=== PATIENT | male | born 1950 | race Caucasian/White ===

== ENCOUNTER 2017-11-19 07:31 | Outpatient (CLI) | payer MEDICARE, OTHER ==
--- NOTE | 2017-11-20 13:52 | MRI Report ---
EXAM: MRI CERVICAL SPINE WITHOUT CONTRAST COMPARISON: None. CLINICAL HISTORY: Cervicalgia. TECHNIQUE: Multiplanar, multisequence imaging through the cervical spine without intravenous contrast. FINDINGS: Evaluation of alignment shows no listhesis. C0-C1, C1-C2, and dens basion alignment are normal. Visualized posterior fossa shows no evident abnormality. No cord signal abnormality. Dorsal soft tissues are relatively unremarkable. No pathologic marrow replacement. No cervical adenopathy or masses are appreciated. Disk levels: C2-C3. Moderate disk height loss. There is mild right and moderate to severe left foraminal stenosis. No significant canal stenosis. C3-C4. Moderate disk height loss. There is moderate bilateral foraminal stenosis, mild bilateral fac et arthropathy. No significant canal stenosis. C4-C5. Moderate disk loss. Mild bilateral facet arthropathy. Asymmetric left-sided disk protrusion (8 01, 16), does narrow the left neural infundibulum. Foraminal stenosis is mild to moderate bilaterally . Mild to moderate asymmetric left-sided canal stenosis. C5-C6. Moderate disk height loss. Mild bilateral facet arthropathy. Asymmetric left-sided uncovertebr al joint hypertrophy/disk and osteophyte causes moderate to severe left foraminal stenosis. Mild righ t foraminal stenosis. Mild canal stenosis. C6-C7. Moderate disk height loss. Mild facet arthropathy. As at the level above, there is asymmetric left-sided disk and osteophyte. Foraminal stenosis is mild on the right, mild to moderate on the left . C7-T1. No significant canal or foraminal stenosis. IMPRESSION: No cord signal abnormality. No high-grade canal stenosis. C2-C3. Moderate to severe left foraminal stenosis. C5-C6. Moderate to severe left foraminal stenosis. Referring Provider Line: [phone] SITE ID: [id number]
== END 2017-11-19 07:32 | disposition home or self-care (01) ==
LOC: DI 07:31
PROVIDERS: ATTEND Otolaryngology Facial Plastic Surgery
DX: M48.02 Spinal stenosis, cervical region (principal)
CPT/HCPCS: 72141

== ENCOUNTER 2017-12-16 07:30 | Outpatient (CLI) | payer MEDICARE, OTHER ==
[2017-12-16] MEDS ORDERED: IOPAMIDOL-300 100 ML VIAL ONE (07:52)
[2017-12-16] MEDS ORDERED: IOPAMIDOL-300 50 ML VIAL ONE (07:52)
[2017-12-16 07:56] LABS: CREATININE 1.1 mg/dL (0.6-1.2)
[2017-12-16] MEDS ORDERED: IOPAMIDOL-300 100 ML VIAL IVP ONE (10:45)
--- NOTE | 2017-12-16 17:33 | CT Report ---
Procedure Date: 12/16/2017 Accession Number: [id number] / [id number] Procedure: CT - Abdomen/Pelvis W/ CPT Code: FULL RESULT: EXAM: CT ABDOMEN AND PELVIS EXAM DATE: 12/16/2017 09:11 AM. CLINICAL HISTORY: UNSPECIFIED ABDOMINAL PAIN. Colon cancer history. COMPARISONS: None available. TECHNIQUE: Routine helical CT imaging was performed through the abdomen and pelvis. IV contrast: 100 mL Isovue-300. Enteric contrast: Yes. Reconstructions: Coronal and sagittal. In accordance with CT protocol optimization, one or more of the following dose reduction techniques were utilized for this exam: automated exposure control, adjustment of mA and/or KV based on patient size, or use of iterative reconstructive technique. FINDINGS: Lung Bases: 1. There is a 0.5 cm nodule in the left lower lobe series 3 image 2. 2. There is a 0.2 cm nodule in the right lower lobe series 3 image 5. Liver: Normal. No masses. Gallbladder/Bile Ducts: There is a 0.4 cm gallstone. No gallbladder wall thickening or pericholecystic fluid is evident. No abnormal bile duct dilation. Spleen: Normal. Pancreas: Normal. Adrenal Glands: Normal. Kidneys: Normal. No masses or hydronephrosis. Peritoneal Cavity/Bowel: There are postsurgical changes to the rectosigmoid colon. There is some soft tissue thickening between the rectum and urinary bladder on series 3 image 68 measuring approximately 2.1 x 5.7 cm. No free fluid, free air or adenopathy. No masses or acute inflammatory process. The appendix is well visualized and normal. Pelvic Organs: Normal. The bladder and visualized pelvic organs are within normal limits. Vasculature: There is atherosclerotic plaque in the aorta and iliac arteries without aneurysm. Bones: There is degenerative spondylosis in the upper and mid lumbar spine. There is a left hip prosthesis. There are degenerative changes in the right hip. There is a 0.7 cm sclerotic lesion on the left side of L3 series 3 image 32. Other: There are small bilateral inguinal hernias containing soft tissue and fluid density. No pathologic adenopathy appreciated. IMPRESSION: 1. There are tiny bilateral lung nodules. 2. There are postsurgical changes to the rectosigmoid colon. There is an area of soft tissue thickening between the rectum and urinary bladder. Recurrent disease is a possibility, if the patient has prior imaging, this would be helpful to evaluate stability of this finding. 3. There is a subcentimeter sclerotic lesion on the left side of L3. This may represent a benign bone island, metastasis is another possibility. 4. Cholecystolithiasis and other incidental findings described above. RADIA
== END 2017-12-16 07:31 | disposition home or self-care (01) ==
LOC: LAB 07:30 → DI 07:31
PROVIDERS: ATTEND Surgery
DX: R91.8 Other nonspecific abnormal finding of lung field (principal); R10.9 Unspecified abdominal pain; M89.9 Disorder of bone, unspecified; Z85.038 Personal history of other malignant neoplasm of large intestine; K80.20 Calculus of gallbladder without cholecystitis without obstruction
CPT/HCPCS: 36415; 74177; 82565; Q9967

== ENCOUNTER 2017-12-26 08:10 | Outpatient (CLI) | payer MEDICARE, OTHER | END 2017-12-26 08:11 | disposition home or self-care (01) | LOC: DI 08:10 | PROVIDERS: ATTEND Surgery | DX: Z53.9 Procedure and treatment not carried out, unspecified reason (principal) ==

== ENCOUNTER 2017-12-27 08:05 | Outpatient (CLI) | payer MEDICARE, OTHER ==
--- NOTE | 2017-12-27 08:54 | XRAY Report ---
Procedure Date: 12/27/2017 Accession Number: [id number] / [id number] Procedure: XR - Abdomen 1 View X-Ray CPT Code: 56791 FULL RESULT: EXAM: Abdomen 1 View X-Ray DATE: 12/27/2017 8:20 AM CLINICAL HISTORY: SITZ MARKER TEST, CONSTIPATION, day one film COMPARISON: CT 12/16/2017 TECHNIQUE: 1 view. FINDINGS: Bowel Gas Pattern: Within normal limits. No dilated loops. Other: 3 markers are present in the ascending colon. 2 markers are noted in the transverse colon. 14 markers are noted in the splenic flexure/descending colon. Surgical clips are noted in the right lower quadrant, with a sigmoid anastomosis line present as well. IMPRESSION: 19 markers present in the colon on day one film. RADIA
== END 2017-12-27 08:06 | disposition home or self-care (01) ==
LOC: DI 08:05
PROVIDERS: ATTEND Surgery
DX: K59.00 Constipation, unspecified (principal)
CPT/HCPCS: 74018

== ENCOUNTER 2017-12-29 07:59 | Outpatient (CLI) | payer MEDICARE, OTHER ==
--- NOTE | 2017-12-29 09:02 | XRAY Report ---
Procedure Date: 12/29/2017 Accession Number: [id number] / [id number] Procedure: XR - Abdomen 1 View X-Ray CPT Code: 69040 FULL RESULT: EXAM: Abdomen 1 View X-Ray DATE: 12/29/2017 8:14 AM CLINICAL HISTORY: SITZ MARKER TEST, CONSTIPATION, day 3 COMPARISON: 12/27/2017 TECHNIQUE: 1 view. FINDINGS: Bowel Gas Pattern: Within normal limits. No dilated loops. Other: 3 markers are noted in the transverse colon, with 15 in the descending colon. Surgical clips and anastomosis in the pelvis appear unchanged. IMPRESSION: 18 remaining markers on day 3, in the transverse and descending colon. RADIA
== END 2017-12-29 08:00 | disposition home or self-care (01) ==
LOC: DI 07:59
PROVIDERS: ATTEND Surgery
DX: K59.00 Constipation, unspecified (principal)
CPT/HCPCS: 74018

== ENCOUNTER 2017-12-31 07:55 | Outpatient (CLI) | payer MEDICARE, OTHER ==
--- NOTE | 2017-12-31 13:12 | XRAY Report ---
Procedure Date: 12/31/2017 Accession Number: [id number] / [id number] Procedure: XR - Abdomen 1 View X-Ray CPT Code: 67986 FULL RESULT: EXAM: ABDOMEN RADIOGRAPHY EXAM DATE: 12/31/2017 08:07 AM. CLINICAL HISTORY: SITZ HOU TESTS,CONSTIPATION. COMPARISON: 12/29/2017. TECHNIQUE: 1 view. FINDINGS: Bowel Gas Pattern: 6 markers overlie the splenic flexure of the colon. 2 markers overlie the descending colon. Other: None. IMPRESSION: 1. There are 8 markers in the left colon. Interval decrease in number of Sitzmarks markers compared to 2 days earlier. RADIA
== END 2017-12-31 07:56 | disposition home or self-care (01) ==
LOC: DI 07:55
PROVIDERS: ATTEND Surgery
DX: K59.00 Constipation, unspecified (principal)
CPT/HCPCS: 74018

== ENCOUNTER 2018-01-02 15:06 | Outpatient (CLI) | payer MEDICARE, OTHER ==
--- NOTE | 2018-01-02 15:47 | XRAY Report ---
Procedure Date: 01/02/2018 Accession Number: [id number] / [id number] Procedure: XR - Abdomen 1 View X-Ray CPT Code: 72351 FULL RESULT: EXAM: Abdomen 1 View X-Ray DATE: 01/02/2018 3:10 PM CLINICAL HISTORY: SITZ MARKER TEST,CONSTIPATION COMPARISON: 12/31/2017, 12/29/2017, 12/27/2017 TECHNIQUE: 1 view. FINDINGS: Bowel Gas Pattern: Within normal limits. No dilated loops. Other: 2 markers are now present in the descending colon. Postoperative changes are stable. IMPRESSION: 2 Sitzmarks markers retained in the descending colon on the final day of the examination. RADIA
== END 2018-01-02 15:07 | disposition home or self-care (01) ==
LOC: DI 15:06
PROVIDERS: ATTEND Surgery
DX: K59.00 Constipation, unspecified (principal)
CPT/HCPCS: 74018

== ENCOUNTER 2019-04-16 11:14 | Outpatient (CLI) | payer MEDICARE, OTHER ==
[2019-04-16 12:18] LABS: BASOPHILS # (AUTO) 0.1 10^3/uL (0.0-0.1); EOSINOPHILS # (AUTO) 0.3 10^3/uL (0.0-0.7); EOSINOPHILS % (AUTO) 5.7 %; HGB - HEMOGLOBIN 15.5 g/dL (14.0-18.0); LYMPHOCYTES % (AUTO) 19.4 %; MEAN CORPUSCULAR HEMOGLOBIN 32.4 pg (27.0-31.0); MEAN CORPUSCULAR HGB CONC 32.7 g/dL (32.0-36.0); MEAN PLATELET VOLUME 9.2 fL (7.4-11.4); MONOCYTES # (AUTO) 0.4 10^3/uL (0.0-1.0); MONOCYTES % (AUTO) 8.1 %; NEUTROPHILS # (AUTO) 3.2 10^3/uL (1.5-6.6); NEUTROPHILS % (AUTO) 65.4 %; PLT - PLATELET COUNT 184 10^3/uL (130-450); RED BLOOD COUNT 4.79 10^6/uL (4.70-6.10); RED CELL DISTRIBUTION WIDTH 13.6 % (12.0-15.0); WHITE BLOOD COUNT 4.9 x10^3/uL (4.8-10.8)
[2019-04-16 12:47] LABS: ALBUMIN 4.3 g/dL (3.2-5.5); ALBUMIN/GLOBULIN RATIO 1.7 (1.0-2.2); ALKALINE PHOSPHATASE 64 IU/L (42-121); ALT ALANINE AMINOTRANSFERASE 19 IU/L (10-60); AST ASPARTATE AMINOTRANSFERASE 21 IU/L (10-42); BILIRUBIN,TOTAL 0.5 mg/dL (0.2-1.0); BUN - BLOOD UREA NITROGEN 15 mg/dL (6-20); CARBON DIOXIDE - CO2 30 mmol/L (21-32); CHLORIDE 102 mmol/L (101-111); CREATININE 1.1 mg/dL (0.6-1.2); GFR - MDRD 66 (>89); GLUCOSE 86 mg/dL (70-100); SODIUM 141 mmol/L (135-145); TOTAL PROTEIN 6.9 g/dL (6.7-8.2)
[2019-04-16 12:49] LABS: CRP - C-REACTIVE PROTEIN < 1.0 mg/dL (0-1.0)
[2019-04-18 14:28] LABS: ANA SCREEN NEGATIVE (NEGATIVE)
== END 2019-04-16 11:15 | disposition home or self-care (01) ==
LOC: LAB 11:14
PROVIDERS: ATTEND Surgery
DX: M62.81 Muscle weakness (generalized) (principal); M25.551 Pain in right hip; R10.31 Right lower quadrant pain
CPT/HCPCS: 36415; 80053; 84443; 85025; 86038; 86140

== ENCOUNTER 2019-04-19 11:50 | Outpatient (CLI) | payer MEDICARE, OTHER ==
[2019-04-19] MEDS ORDERED: IOVERSOL 320 100 ML VIAL IVP ONE ×2 (12:06→15:30)
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
--- NOTE | 2019-04-20 13:42 | XRAY Report ---
Reason: RT HIP PAIN Procedure Date: 04/19/2019 Accession Number: [id number] / [id number] Procedure: XR - Hips 2V BILAT CPT Code: FULL RESULT: EXAM: BILATERAL HIP RADIOGRAPHY EXAM DATE: 04/19/2019 12:30 PM. CLINICAL HISTORY: Right hip pain. COMPARISON: ABDOMEN 1 VIEW 01/02/2018 3:05 PM. TECHNIQUE: 2 views each. FINDINGS: Bones: No fracture identified. Intact previous bipolar left hip arthroplasty. Right Hip: Moderate narrowing, with subchondral sclerotic changes of the acetabulum and femoral head. No subluxation or dislocation. Left Hip: Stable appearance of bipolar hip arthroplasty. Soft Tissues: Numerous surgical clips and surgical sutures in the true pelvis. IMPRESSION: Moderate degenerative changes right hip. RADIA
--- NOTE | 2019-04-20 14:33 | CT Report ---
Reason: MULTIPLE NODULES OF LUNG Procedure Date: 04/19/2019 Accession Number: [id number] / [id number] Procedure: CT - CHEST W CPT Code: FULL RESULT: EXAM: CT CHEST EXAM DATE: 04/19/2019 12:22 PM. CLINICAL HISTORY: Multiple nodules of lung. COMPARISONS: ABDOMEN/PELVIS W/ 12/16/2017 9:06 AM. TECHNIQUE: Routine helical CT imaging was performed through the chest. IV contrast: None. Reconstructions: Coronal and sagittal. In accordance with CT protocol optimization, one or more of the following dose reduction techniques were utilized for this exam: automated exposure control, adjustment of mA and/or KV based on patient size, or use of iterative reconstructive technique. FINDINGS: Lungs/Pleura: Left lower lobe nodule today measures 6 mm in maximal transverse dimension, previously 5 mm. Series 5 image 236. Previously seen 2 mm nodule at the posterior right lung base is no longer identified. No additional lung nodules detected bilaterally. No pleural fluid collections or lung consolidations. Mediastinum: Normal. No adenopathy or masses. The heart and great vessels are normal. Bones: Unremarkable. Visualized Abdomen: Unremarkable. Other: None. IMPRESSION: Minimal growth of a noncalcified nodule in the left lower lobe, 6 mm today versus 5 mm previous. No additional lung nodules identified. RADIA
== END 2019-04-19 11:51 | disposition home or self-care (01) ==
LOC: DI 11:50
PROVIDERS: ATTEND Surgery
DX: R91.1 Solitary pulmonary nodule (principal); M16.11 Unilateral primary osteoarthritis, right hip; Z96.642 Presence of left artificial hip joint; R68.84 Jaw pain
CPT/HCPCS: 70450; 71260; 73521; Q9967

== ENCOUNTER 2021-01-31 11:06 | Outpatient (CLI) | payer MEDICARE, OTHER | END 2021-01-31 11:07 | disposition critical access hospital (66) | LOC: EMS 11:06 | DX: M54.2 Cervicalgia (principal); M25.511 Pain in right shoulder | CPT/HCPCS: A0425; A0429 ==

== ENCOUNTER 2021-01-31 11:19 | Emergency (ER) | payer MEDICARE, OTHER ==
[2021-01-31] MEDS ORDERED: HYDROmorphone 1 MG/ML CARPUJECT IM STA (11:51)
[2021-01-31] MEDS ORDERED: BUPIVACAINE 0.5% PF 10 ML VIAL IM ONE (11:58)
--- NOTE | 2021-01-31 11:59 | ED Physician Documentation ---
History of Present Illness - Stated complaint Stated Complaint: SHOULDER/NECK PX - Chief complaint Chief Complaint: Back Pain - Additonal information Additional information: 70-year-old male presents the emergency department for evaluation of acute right-sided neck pain that radiates to his shoulder and down his trapezius. It began yesterday and has gone unabated. He has a palpable lump in his neck that prevents movement of his head laterally and with forward flexion. No headache. No fevers. Denies chest pain or shortness of air. There have been no trauma. No history of similar in the past. Review of Systems Constitutional: denies: Fever, Chills Eyes: reports: Reviewed and negative Ears: reports: Reviewed and negative Nose: reports: Reviewed and negative Throat: reports: Reviewed and negative : reports: Reviewed and negative Skin: reports: Reviewed and negative Musculoskeletal: reports: Neck pain PD PAST MEDICAL HISTORY - Present Medications Home Medications: Ambulatory Orders Medication Instructions Recorded Confirmed Cyclobenzaprine [Flexeril] 10 mg PO TID PRN #10 tablet 01/31/21 oxyCODONE [Roxicodone] 5 mg PO BID #10 tablet 01/31/21 - Allergies Allergies/Adverse Reactions: Allergies Allergy/AdvReac Type Severity Reaction Status Date / Time No Known Drug Allergies Allergy Verified 01/31/21 11:39 PD ED PE EXPANDED - General General: Alert, In Pain - Neck Neck: Supple w/out meningeal sx, Limited ROM, Other (palpable spasm right paraspinous cervical muscle with pain elicted down the trapezius) - Cardiac Cardiac: Regular Rate, Radial strong equal, Pedal strong equal, Cap refill < 2 sec. No: Murmur Present - Respiratory Respiratory: Clear to ausultation sanna. No: Distress, Labored Results - Vitals Vitals: Vital Signs - 24 hr 01/31/21 11:30 Temperature 36.3 C L Heart Rate 66 Respiratory 18 Rate Blood Pressure 159/79 H O2 Saturation 100 Oxygen O2 Source Room air Procedures - General procedure General procedure: Right cervical paraspinous trigger block. Utilizing sterile technique 2 mL of 0.5% bupivacaine injected into the right paraspinous muscle spasm. Patient tolerated well with moderate relief of pain. PD MEDICAL DECISION MAKING - ED course Complexity details: reviewed results, re-evaluated patient, d/w patient, d/w family ED course: 70-year-old male presents the emergency department for evaluation of a right paraspinous muscle spasm that has been present for 2 days. It limits the movement of his neck. He has not had any falls or trauma. No fevers or erythema to suggest infection. Initially he was given 1 mg of Dilaudid IM with minimal relief of pain. I then used 2 cc of 0.5% ropivacaine and a trigger point injection fashion. Initially he began to have some relief of the spasm and pain. Patient is advised to follow-up with his PCP. He may benefit from referral to physical therapy. I am prescribing a short course of short-acting opioid pain medication for this patient. I have reviewed the patients [employer] and no concerning findings were noted. I have discussed that the opioids are for short term therapy only, and will not be refilled from the ED. Departure - Departure Disposition: 01 Home, Self Care Clinical Impression: Neck muscle spasm Condition: Stable Record reviewed to determine appropriate education?: Yes Prescriptions: Cyclobenzaprine [Flexeril] 10 mg PO TID PRN #10 tablet PRN Reason: Spasms oxyCODONE [Roxicodone] 5 mg PO BID #10 tablet Comments: Collin you are seen in the ER today for a muscle spasm in your right cervical neck. We did use bupivacaine as a trigger point injection. The goal is that over the next few hours you begin to have relief of the spasm. I would recommend gentle massage and light stretching of the neck. A warm compress can also help relax this muscle. I am prescribing a very limited amount of oxycodone for severe pain. I do recommend that you continue with the Tylenol and ibuprofen at home. I am also prescribing a very limited amount of a muscle relaxer. Do not use both the oxycodone and the muscle relaxer together this can be excessively sedating. Please follow-up with your primary as soon as you are able. You may benefit from referral to physical therapy or further trigger point injections for this spasm. I am prescribing a short course of narcotic pain medication for you. These are potentially dangerous and addictive medications that should be used carefully. These medications may constipate you. Take an kkun-mlg-ykcjgcn stool softener (docusate) twice daily with plenty of water while taking these medications. If you go 24 hours without a bowel movement, take oxlk-zxc-vcsondf miralax, per package instructions. Do not drink or drive while taking these medications. If you received narcotic or sedating medications while in the emergency department, do not drive for 24 hours. Store this medication in a safe, secure place and out of reach of children. It is a violation of federal law to give or sell this medication to another person or to use in a manner other than prescribed. The ED will not refill narcotic prescriptions, including prescriptions lost or stolen. To dispose of unwanted medications: 1. [facility] at [address] in [place] has a medication drop box. They accept prescription medications (in pill form) Tuesday through Tuesday 9:00 a.m. to 5:00 p.m. 2. [facility] accepts prescription medications (in pill form only) for disposal year round. Call for more information. 3. Contact the [facility] for the next [facility] sponsored prescription drug collection event. , [phone], or [phone]; Note that many narcotic pain relievers also contain Tylenol/acetaminophen. Please ensure that your total dose of acetaminophen from all sources does not exceed 3 g (3000 mg) per day.
[2021-01-31 12:54] VITALS: BP 131/82
== END 2021-01-31 12:54 | disposition home or self-care (01) ==
LOC: EDUNIT# → ED 11:19
DX: M62.838 Other muscle spasm (principal); M54.2 Cervicalgia
CPT/HCPCS: 20552; 96372; 99283; J1170

== ENCOUNTER 2024-03-04 13:31 | Emergency (ER) | payer MEDICARE, OTHER ==
--- NOTE | 2024-03-04 13:51 | ED Physician Documentation ---
History of Present Illness - Stated complaint Stated Complaint: TUBE OUT OF KIDNEY FELL OUT - Chief complaint Chief Complaint: General - History obtained from History obtained from: Patient - History of Present Illness Timing: Today Quality: Patient with nephrstomy tubes but kidneys and the right one fell out today. He wa changing clothes and noted it loose, not much output from it overnight. Has had then 3 months due to bladder cancer. He does still urinate some. Associated symptoms: he did not call the urologist office. PD PAST MEDICAL HISTORY - Past Medical History Past Medical History: Yes Cardiovascular: Hypertension, High cholesterol Respiratory: None Neuro: None Endocrine/Autoimmune: None GI: GERD : None HEENT: Chronic vision loss, Chronic hearing loss Musculoskeletal: Chronic back pain Derm: None - Past Surgical History Past Surgical History: Yes General: Hiatal hernia repair Ortho: Knee replacement, Arthroscopic surgery - Present Medications Home Medications: Ambulatory Orders Medication Instructions Recorded Confirmed oxyCODONE [Roxicodone] 5 mg PO BID #10 tablet 01/31/21 03/04/24 LORazepam [Ativan] 1 tab PO DAILY 03/04/24 03/04/24 - Allergies Allergies/Adverse Reactions: Allergies Allergy/AdvReac Type Severity Reaction Status Date / Time No Known Drug Allergies Allergy Verified 01/31/21 11:39 - Social History Does the pt smoke?: No Smoking Status: Never smoker Does the pt drink ETOH?: No Does the pt have substance abuse?: Yes - Immunizations Immunizations are current?: Yes - POLST Patient has POLST: No PD ED PE NORMAL - Vitals Vital signs reviewed: Yes - General General: Alert and oriented X 3, No acute distress, Well developed/nourished - Back Back: No CVA TTP (tube from left flank to drainage bag without problems. Right flank with tegaderm type dressing, without tube. Skin without redness, tenderness. No purulence. ) - Derm Derm: Normal color, Warm and dry Results - Vitals Vitals: Vital Signs - 24 hr 03/04/24 03/04/24 13:35 14:39 Temperature 36.8 C 36.5 C Heart Rate 60 60 Respiratory 16 16 Rate Blood Pressure 140/90 H 130/80 O2 Saturation 96 98 Oxygen O2 Source Room air PD Medical Decision Making - ED course Complexity details: considered differential (the right flank with covered ba ndage with skin not showing signs of infection. Tube not in place. Dressing left on to cover/protect the hole. ), d/w patient, d/w [employer] consultant (Urologist signs and displays salesperson at [facility], who said the tube is okay to not get put in right away, but can be okay for several days. To have pt call office in AM to arrange time that IR will replace the tube. ) Departure - Departure Disposition: 01 Home, Self Care Clinical Impression: Nephrostomy tube displaced Condition: Stable Record reviewed to determine appropriate education?: Yes Follow-Up: Supa Nathan MD [Primary Care Provider] - Comments: I talked with the urologist on-call at [facility] who is covering for Dr. Nathan and the urologist stated the nephrostomy tube can be replaced within the next several days. He would not want to wait to the scheduled time later this month. The direction from the urologist was for you to call the office tomorrow to update on the occurrence and they will schedule you for interventional radiology to replace it in the next few days. Forms: PCP List Discharge Date/Time: 03/04/24 14:47
[2024-03-04 14:54] VITALS: BP 130/80; O2SAT 98
== END 2024-03-04 14:47 | disposition home or self-care (01) ==
LOC: ED 13:31
DX: N99.528 Other complication of incontinent external stoma of urinary tract (principal); I10 Essential (primary) hypertension; E78.00 Pure hypercholesterolemia, unspecified
CPT/HCPCS: 99282; 99283